=== PATIENT | female | born 1960 | race Caucasian/White ===

== ENCOUNTER 2024-01-06 08:12 | Outpatient (CLI) | payer MEDICAID, SELFPAY ==
--- OUTSIDE RECORDS SUMMARY | 2024-01-06 08:19 | XMS_ITS | Data Portability ---
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 Plan of Treatment Reminders Order Date Submit Date Provider Last Modified By Organization Details Last Modified Time Details Appointments ESTABLISH ED 10 2023 03:40P M Yon Angel MD Not available Not available Not available Lab urinalysi s, dipstick 2022 023 [email or web address] [facility], [address], [place], [address], 11/12/2022 13:58:55 Referral None recorded. Procedures None recorded. Surgeries None recorded. Imaging None recorded. Medication Orders None recorded. Patient TargetsNo targets recorded. Patient Instructions Encounter Date Encounter Id Patient Instructions Last Modified By Organization Details Last Modified Time 11/12/2022 [id number] will set up for CT urogram and call with plan for cysto [email or web address] Not available 11/12/2022 14:05:26 11/26/2022 [id number] will set up for 24 hour urine collection will call with result and follow up plan. [email or web address] Not available 11/26/2022 16:12:28 Reason for Referral None Reported. Results Created Date Observation Date Name Description Value Unit Range Abnormal Flag LastModifiedBy Organization Detail LastModifiedTime 11/13/19 23 11/12/2022 urina lysis , dipst ick pH-Status 5.5 Not Available [facility] [address], [place], [address], 11/10/2022 16:33:38 11/13/19 23 11/12/2022 urina lysis , dipst ick Blood-Status Large Not Available [facility] [address], [place], [address], 11/10/2022 16:33:38 12/14/19 23 12/16/2022 LITHO LINK 24HR URINE PANEL cystine, urine, qualitative Neg negati ve Not Available [facility] ([facility]) [address] [place], [address], 12/17/2022 00:06:26 12/14/19 23 12/16/2022 LITHO LINK 24HR URINE PANEL urine volume (preserved) 1940 mL/24 _HR 500-40 00 Not Available [facility] ([facility]) [address] [place], [address], 12/17/2022 00:06:26 12/14/19 23 12/16/2022 LITHO LINK 24HR URINE PANEL calcium oxalate saturation 13.63 6.00-1 0.00 above high normal Not Available [facility] ([facility]) [address] [place], [address], 12/17/2022 00:06:26 12/14/19 23 12/16/2022 LITHO LINK 24HR URINE PANEL calcium, urine 485 mg/24 _HR <200 above high normal Not Available [facility] ([facility]) [address] [place], [address], 12/17/2022 00:06:26 12/14/19 23 12/16/2022 LITHO LINK 24HR URINE PANEL oxalate, urine 56 mg/24 _HR 20-40 above high normal Not Available [facility] ([facility]) [address] [place], [address], 12/17/2022 00:06:26 12/14/19 23 12/16/2022 LITHO LINK 24HR URINE PANEL citrate, urine 1257 mg/24 _HR >550 Not Available [facility] ([facility]) [address] [place], [address], 12/17/2022 00:06:26 12/14/1912/16/2022 LITHO LINK 24HR URINE PANEL calcium phosphate saturation 3.68 0.50-2 .00 above high normal Not Available [facility] ([facility]) [address] [place], [address], 12/17/2022 00:06:26 12/14/1912/16/2022 LITHO LINK 24HR URINE PANEL pH, 24 HR, urine 6.371 5.800- 6.200 above high normal Not Available [facility] ([facility]) [address] [place], [address], 12/17/2022 00:06:26 12/14/19 23 12/16/2022 LITHO LINK 24HR URINE PANEL uric acid saturation 0.28 <1.00 Not Available [facility] ([facility]) [address] [place], [address], 12/17/2022 00:06:26 12/14/1912/16/2022 LITHO LINK 24HR URINE PANEL uric acid, urine 568 mg/24 _HR <750 Not Available [facility] ([facility]) [address] [place], [address], 12/17/2022 00:06:26 12/14/1912/16/2022 LITHO LINK 24HR URINE PANEL sodium, urine 179 mmol/ 24_HR 50-150 above high normal Not Available [facility] ([facility]) [address] [place], [address], 12/17/2022 00:06:26 12/14/19 23 12/16/2022 LITHO LINK 24HR URINE PANEL potassium, urine 76 mmol/ 24_HR 20-100 Not Available [facility] ([facility]) [address] [facility] [place], [address], 12/17/2022 00:06:26 12/14/1912/16/2022 LITHO LINK 24HR URINE PANEL magnesium, urine 225 mg/24 _HR 30-120 above high normal Not Available [facility] ([facility]) [address] [place], [address], 12/17/2022 00:06:26 12/14/1912/16/2022 LITHO LINK 24HR URINE PANEL phosphorus, urine 1093 mg/24 _HR 600-12 00 Not Available [facility] ([facility]) [address] [place], [address], 12/17/2022 00:06:26 12/14/1912/16/2022 LITHO LINK 24HR URINE PANEL ammonium, urine 27 mmol/ 24_HR 15-60 Not Available [facility] ([facility]) [address] [place], [address], 12/17/2022 00:06:26 12/14/1912/16/2022 LITHO LINK 24HR URINE PANEL chloride, urine 177 mmol/ 24_HR 70-250 Not Available [facility] ([facility]) [address] [place], [address], 12/17/2022 00:06:26 12/14/19 23 12/16/2022 LITHO LINK 24HR URINE PANEL sulfate, urine 34 mEq/2 4_HR 20-80 Not Available [facility] ([facility]) [address] [place], [address], 12/17/2022 00:06:26 12/14/19 23 12/16/2022 LITHO LINK 24HR URINE PANEL urea nitrogen, urine 12.08 g/24_ HR 6.00-1 4.00 Not Available [facility] ([facility]) [address] [place], [address], 12/17/2022 00:06:26 12/14/1912/16/2022 LITHO LINK 24HR URINE PANEL protein catabolic rate 1.2 g/kg/ 24_HR 0.8-1. 4 Not Available [facility] ([facility]) [address] [place], [address], 12/17/2022 00:06:26 12/14/1912/16/2022 LITHO LINK 24HR URINE PANEL creatinine, urine 1370 mg/24 _HR not applic . Not Available [facility] ([facility]) [address] [place], [address], 12/17/2022 00:06:26 12/14/1912/16/2022 LITHO LINK 24HR URINE PANEL creatinine/k g body weight 18.8 mg/24 _HR/k g 8.7-20 .3 Not Available [facility] ([facility]) [address] [place], [address], 12/17/2022 00:06:26 12/14/1912/16/2022 LITHO LINK 24HR URINE PANEL calcium/kg body weight 6.6 mg/24 _HR/k g <4.0 above high normal Not Available [facility] ([facility]) [address] [place], [address], 12/17/2022 00:06:26 12/14/1912/16/2022 LITHO LINK 24HR URINE PANEL calcium/crea tinine ratio 354 mg/g_ creat 51-262 above high normal Not Available [facility] ([facility]) [address] [place], [address], 12/17/2022 00:06:26 12/14/1912/16/2022 LITHO LINK 24HR URINE PANEL comment Note Not Available [facility] ([facility]) [address] [place], [address], 12/17/2022 00:06:26 12/14/19 23 12/16/2022 LITHO LINK 24HR URINE PANEL pdf . Not Available [facility] ([facility]) [address] [place], [address], 12/17/2022 00:06:26 05/27/20 23 06/01/2023 LITHO LINK 24HR URINE PANEL cystine, urine, qualitative COMMEN T Not Available [facility] ([facility]) [address] [place], [address], 06/01/2023 04:07:48 05/27/2006/01/2023 LITHO LINK 24HR URINE PANEL urine volume (preserved) 1620 mL/24 _HR 500-40 00 Not Available [facility] ([facility]) [address] [place], [address], 06/01/2023 04:07:48 05/27/2006/01/2023 LITHO LINK 24HR URINE PANEL calcium oxalate saturation 7.27 6.00-1 0.00 Not Available [facility] ([facility]) [address] [place], [address], 06/01/2023 04:07:48 05/27/20 23 06/01/2023 LITHO LINK 24HR URINE PANEL calcium, urine 195 mg/24 _HR <200 Not Available [facility] ([facility]) [address] [place], [address], 06/01/2023 04:07:48 05/27/20 23 06/01/2023 LITHO LINK 24HR URINE PANEL oxalate, urine 43 mg/24 _HR 20-40 above high normal Not Available [facility] ([facility]) [address] [place], [address], 06/01/2023 04:07:48 05/27/20 23 06/01/2023 LITHO LINK 24HR URINE PANEL citrate, urine 1126 mg/24 _HR >550 Not Available [facility] ([facility]) [address] [facility] [place], [address], 06/01/2023 04:07:48 05/27/2006/01/2023 LITHO LINK 24HR URINE PANEL calcium phosphate saturation 2.21 0.50-2 .00 above high normal Not Available [facility] ([facility]) [address] [facility] [place], [address], 06/01/2023 04:07:48 05/27/2006/01/2023 LITHO LINK 24HR URINE PANEL pH, 24 HR, urine 6.341 5.800- 6.200 above high normal Not Available [facility] ([facility]) [address] [facility] [place], [address], 06/01/2023 04:07:48 05/27/2006/01/2023 LITHO LINK 24HR URINE PANEL uric acid saturation 0.46 <1.00 Not Available [facility] ([facility]) [address] [facility] [place], [address], 06/01/2023 04:07:48 05/27/2006/01/2023 LITHO LINK 24HR URINE PANEL uric acid, urine 734 mg/24 _HR <750 Not Available [facility] ([facility]) [address] [place], [address], 06/01/2023 04:07:48 05/27/2006/01/2023 LITHO LINK 24HR URINE PANEL sodium, urine 145 mmol/ 24_HR 50-150 Not Available [facility] ([facility]) [address] [place], [address], 06/01/2023 04:07:48 05/27/2006/01/2023 LITHO LINK 24HR URINE PANEL potassium, urine 69 mmol/ 24_HR 20-100 Not Available [facility] ([facility]) [address] [place], [address], 06/01/2023 04:07:48 05/27/20 23 06/01/2023 LITHO LINK 24HR URINE PANEL magnesium, urine 166 mg/24 _HR 30-120 above high normal Not Available [facility] ([facility]) [address] [facility] [place], [address], 06/01/2023 04:07:48 05/27/20 23 06/01/2023 LITHO LINK 24HR URINE PANEL phosphorus, urine 1297 mg/24 _HR 600-12 00 above high normal Not Available [facility] ([facility]) [address] [place], [address], 06/01/2023 04:07:48 05/27/2006/01/2023 LITHO LINK 24HR URINE PANEL ammonium, urine 29 mmol/ 24_HR 15-60 Not Available [facility] ([facility]) [address] [place], [address], 06/01/2023 04:07:48 05/27/20 23 06/01/2023 LITHO LINK 24HR URINE PANEL chloride, urine 122 mmol/ 24_HR 70-250 Not Available [facility] ([facility]) [address] [place], [address], 06/01/2023 04:07:48 05/27/20 23 06/01/2023 LITHO LINK 24HR URINE PANEL sulfate, urine 40 mEq/2 4_HR 20-80 Not Available [facility] ([facility]) [address] [place], [address], 06/01/2023 04:07:48 05/27/2006/01/2023 LITHO LINK 24HR URINE PANEL urea nitrogen, urine 12.16 g/24_ HR 6.00-1 4.00 Not Available [facility] ([facility]) [address] [place], [address], 06/01/2023 04:07:48 05/27/20 23 06/01/2023 LITHO LINK 24HR URINE PANEL protein catabolic rate 1.2 g/kg/ 24_HR 0.8-1. 4 Not Available [facility] ([facility]) [address] [facility] [place], [address], 06/01/2023 04:07:48 05/27/20 23 06/01/2023 LITHO LINK 24HR URINE PANEL creatinine, urine 1404 mg/24 _HR not applic . Not Available [facility] ([facility]) [address] [facility] [place], [address], 06/01/2023 04:07:48 05/27/2006/01/2023 LITHO LINK 24HR URINE PANEL creatinine/k g body weight 19.4 mg/24 _HR/k g 8.7-20 .3 Not Available [facility] ([facility]) [address] [facility] [place], [address], 06/01/2023 04:07:48 05/27/20 23 06/01/2023 LITHO LINK 24HR URINE PANEL calcium/kg body weight 2.7 mg/24 _HR/k g <4.0 Not Available [facility] ([facility]) [address] [facility] [place], [address], 06/01/2023 04:07:48 05/27/2006/01/2023 LITHO LINK 24HR URINE PANEL calcium/crea tinine ratio 139 mg/g_ creat 51-262 Not Available [facility] ([facility]) [address] [facility] [place], [address], 06/01/2023 04:07:48 05/27/2006/01/2023 LITHO LINK 24HR URINE PANEL comment NOTE Not Available [facility] ([facility]) [address] [facility] [place], [address], 06/01/2023 04:07:48 11/27/1911/24/2022 CT, urogr am No observ ation record ed. [email or web address] [facility] [address], [place], [address], 11/26/2022 12:28:21 11/27/19 23 11/26/2022 XR, kidne y + urete r + bladd er EXAM: XR, KIDNEY + URETER + BLADDE R LOCATI ON: [facility] DATE/T SUNITA: 11/27/19 23 2:45 PM CDT INDICA TION: Nephro lithia sis. COMPAR BOWEN: CT of the abdome n and pelvis perfor med 023. IMPRES GATO: There is a large amount of gas and stool throug hout the colon, sugges ting consti pation . The kidney s are signif icantl y obscur ed by overly ing bowel gas. A 0.5 cm stone is noted in the upper pole of the right kidney . Severa l small stones are visibl e in the left kidney , with the larges t measur ed at 0.4 cm. No convin cing ureter al calcul i. This report was electr onical ly interp reted by: Bella arechiga MD on 2022 at 16:59 [facility] [address], [place], [address], 11/27/2022 10:33:36 Result Notes None recorded. Procedures Surgical History Date Name Laterality Status Provider Name and Address Organization Details Recorded Time section completed Yon Angel MD [address] [place] [address],[address], [address], [facility] 11/12/2022 13:57:19 fixation of pendulous breast completed Yon Angel MD [address] [place] [address],[address], [address], [facility] 11/12/2022 13:57:35 abdominoplasty completed Yon Angel MD [address] [place] [address],[address], [address], [facility] 11/12/2022 13:57:43 Imaging Results Imaging Date Name Status LastModified by Organiz ation Details LastModified Time 11/24/2022 CT, urogram completed [email or web address] [facility] [address], [place], [address], 11/26/2022 12:28:21 11/26/2022 XR, kidney + ureter + bladder completed [email or web address] [facility] [address], [place], [address], 11/27/2022 10:33:36 Procedure Notes None recorded. Medical Equipment None Reported. Allergies No known drug allergies Medications Name Sig Start Date Stop Date Status Note LastModified by Organization Details LastModified Time hydrochlorothiaz elan 25 mg tablet TAKE 1 TABLET BY MOUTH EVERY DAY 2023 active Not Available Not Available Not Avai lable naproxen 500 mg tablet active Not Available Not Available Not Available Ciprodex 0.3 %-0.1 % ear drops,suspension PLACE 4 DROPS INTO LEFT EAR TWO TIMES DAILY FOR 7 DAYS. active Not Available Not Available No t Available Vitals Date Recorded Body height Body mass index (BMI) Body weight Provider Name and Address Organization Details Last Updated DateTime 11/12/2022 170.18 cm 25.2 kg/m2 18368.37 g Yon Angel MD [address] [place] [address], [address], [facility] 11/12/2022 13:56:22 Date Recorded Body height Body mass index (BMI) Body weight Provider Name and Address Organization Details Last Updated DateTime 11/26/2022 170.18 cm 25.2 kg/m2 16327.37 g Windy Huff [email or web address] 11/26/2022 15:11:24 Social History Question Answer Notes LastModified by Organizat ion Details LastModified Time Tobacco Smoking Status Never Smoker Yon Angel MD [address] [place] [address], [address], [facility] 11/12/2022 13:57:06 What Is Your Level Of Alcohol Consumption? None [email or web address] Information not available 11/12/2022 What Is Your Level Of Caffeine Consumption? Occasional [email or web address] Information not available 11/12/2022 What Was The Date Of Your Most Recent Tobacco Screening? 11/26/2022 [email or web address] Information not available 11/26/2022 Do You Use Any Illicit Or Recreational Drugs? No [email or web address] Information not available 11/26/2022 Has Tobacco Cessation Counseling Been Provided? No [email or web address] Information not available 11/26/2022 Sex: Unknown Functional Status None recorded. Mental Status None recorded. Family History Relationship Description Onset Age of this Age Resolved Age Notes Mother Family history of ca ncer of colon Medical History Condition Response Other N High Blood Pressure N Kidney Stones Y Lung Disease N Depression N GERD/Acid Reflux N Sexually Transmitted Infection N Diabetes N Bleeding Disorder N Cancer N High Cholesterol N Heart Disease N Gynecological HistoryNo gynecological history recorded. Obstetrics History GPAL:G 2 P 0 0 0 0 Past Encounters Encounter ID Performer Location Encounter Start Date Encounter Closed Date Diagnosis/Indication Diagnosis SNOMED-CT Code [id number] Yon Angel MD [facility] [address] [place] [address] 11/12/2022 13:38:23 11/20/2022 11:56:57 Blood in urine [id number] Yon Angel MD [facility] [address] [place] [address] 11/26/2022 14:47:00 12/03/2022 17:23:36 Kidney stone [id number] Health Concerns Section Related Observation LastModified by Organization Detai ls LastModified Time None Recorded Concern Status LastModified by Organization Details LastModified Time None Recorded Advance Directives Directive None Recorded Payers Encounter Date Sequence Insurance Name Policy Number Policy Griffin Covered Member ID Griffin Member ID Guarantor Name 11/12/2022 1 [facility] [id number] 1 Kathya Ospina [id number] Kathya Ospina 11/26/2022 1 [facility] [id number] Kathya Ospina [id number] Kathya Ospina Notes Date Note Type Note Provider Name and Address Organization Details Recorded Time 11/12/2022 text/html HPI Notes: seeing for microhematuria. has stone hx seen on CT 3-4 years ago.. had a bout of freq/urge and then went away. UA lg RBC today. family hx neg for stone. never smoked. Yon Angel MD [address] [facility],[address], [place], [address], [facility] 11/12/2022 14:17:12 11/26/2022 text/html HPI Notes: seeing for follow up stone seen on CT bilateral stones, up to 6mm on right and 3mm on left side. never has passed a stone, KUB today poor quality due to bowel content overlying kidneys.think I can see 1 or 2 stones on the right. Yon Angel MD [address], [place], [address], [facility] 11/26/2022 16:12:40 OBGyn Episode No OBEpisode recorded.
--- OUTSIDE RECORDS SUMMARY | 2024-01-06 08:19 | XMS_ITS | Clinical Summary ---
Author Organization [employer] Address [place], [place] [address] Care Team Providers Care Spring Crater Name Role Phone Urvashi Abrams Primary Care Provider Allergies No known active allergies Medications Medication Sig Dispensed Refills Start Date End Date Status hydroCHLOROthiazide (HCTZ) 25 mg tablet Take 1 tablet every day by oral route for 30 days. 01/03/2023 Active naproxen (NAPROSYN) 500 mg tabletIndications:T endinopathy of left gluteus medius,Hip pain, left Take 1 Tablet (500 mg) by mouth two times daily with meals. 60 Tablet 01/13/2023 Active cyclobenzaprine (FLEXERIL) 10 mg tabletIndications:C hronic tension-type headache, not intractable Take 1 Tablet (10 mg) by mouth at bedtime if needed (muscle spasm and headaches). 30 Tablet 3 09/02/2023 Active Wombp-9-IAB-EPA-Fis h Oil (Fish OiL) 1,200 (144-216) mg capsule Take by mouth. Active calcium/magnesium/z inc (Calcium-Magnesuium -Zinc) 333-133-5 mg tablet Take 1 Tablet by mouth. Active polyethylene glycol-electrolyte (GOLYTELY) 236-22.74-6.74 -5.86 gram suspensionIndicatio ns:Encounter for screening colonoscopy Drink 6 liters (one & one-half bottles) the day before colonoscopy and 2 liters (remaining one-half bottle) 6 hours prior to colonoscopy appointment. 8000 mL 09/13/2023 Active hydroCHLOROthiazide 25 mg tablet Take 1 Tablet by mouth once daily. 11/24/2023 Active Active Problems Problem Noted Date Diagnosed Date Chronic tension-type headache, not intractable 0 02/25/2019 Osteoarthritis of cervical spine with myelopathy 02/25/2019 Hyperopia of both eyes with astigmatism and pres byopia 06/05/2018 Personal history of colonic polyps 12/24/2014 Overview: 3 polyps in 2012, hyperplastic, needs follow up in 5 yrs Colonoscopy 03/2018 hyperplastic polyp, repeat in 5 years Colonoscopy 02/2021 TA, repeat in 7 years, peg4-8L, colowrap, propofol Resolved Problems Problem Noted Date Diagnosed Date Resolved Date OBESITY 11/16/1999 09/08/2009 WARTS, VIRAL NOS 11/16/1999 09/08/2009 Lipoma of unspecified site 09/23/1999 0 09/08/2009 DISORDER, DEPRESSIVE NEC 09/23/1999 DISORDER, TMJ NOS 09/08/2009 Encounters Date Type Department Care Team Description 12/27/2023 10:00 AM CDT [place] [facility] [address] [place] [address] Urvashi Abrams PA Pre-Op Exam 12/27/2023 Travel from Last 3 Months Immunizations Name Administration Dates Next Due Td (Age >=7 Years) 11/02/2005,10/21/2005, 999 Tdap 01/13/2016 Family History Medical History Relation Name Comments Other Brother 1 Miguel They never matt lly determined how he . Melanoma Brother 2 Massimo Rasheed's twin Skin cancer Brother 2 Massimo Another kind of skin cancer as well No Known Problems Daughter Precious Cancer Father Brain tumor dec eased age 70 Other Father brain tumor com plications Cancer-colon Mother Dx age 77 Osteoporosis Mother Cancer-colon Paternal Grandfather Diabetes Sister 1 Melanie Good Health Sister 2 Brittni No Known Problems Son Deacon Cancer-breast No Family History Relation Name Status Comments Brother 1 Miguel Brother 2 Massimo Alive Daughter Precious Alive Father Maternal Grandfather Maternal Grandmother Mother Paternal Grandfather Paternal Grandmother Sister 1 Melanie Alive Sister 2 Brittni Alive Son Deacon Alive Social History Tobacco Use Types Packs/Day Years Used Date Smoking Tobacco: Never Smokeless Tobacco: Never Tobacco Cessation:Counseling Given: No Alcohol Use Standard Drinks/Week Comments No 0 (1 standard drink = 0.6 oz pur e alcohol) PHQ-2 Answer Date Recorded PHQ-2 TOTAL SCORE 0 09/02/2023 Social Connections Answer Date Recorded Frequency of Communication with Friends and Fami ly Not on file 09/26/2023 Financial Resource Strain Answer Date R ecorded Difficulty of Paying Living Expenses 3 09/23/2022 Difficulty of Paying Living Expenses Not on file 09/23/2022 Food Insecurity Answer Date Recorded Worried About Running Out of Food in the Last Ye ar 1 09/23/2022 Transportation Needs Answer Date Record ed Lack of Transportation (Medical) 1 09/23/2022 Housing Stability Answer Date Recorded Unable to Pay for Housing in the Last Year 1 09/23/2022 Sex and Gender Information Value Date Recorded Sex Assigned at Not on file Gender Identity Not on file Sexual Orientation Not on file Obstetrics History Para Term AB IAB SAB Ectopic Multiple Livin g Live Births 2 2 2 2 2 Date Outcome GA Total Labor Labor/2nd/3rd Weight Sex Type Anes PTL Rosy A1 A5 Name Clin 01/28 Term F C-Sec tion Living Precious 12/10 Term M Living Deacon Last Filed Vital Signs Vital Sign Reading Time Taken Comments Blood Pressure 98/60 12/27/2023 9:54 AM CDT Pulse 58 12/27/2023 9:54 AM CDT Temperature 36.6 ??C (97.8 ??F) 02/19/2021 7:38 AM CD T Respiratory Rate 18 03/22/2023 9:37 AM CDT Oxygen Saturation 97% 12/27/2023 9:54 AM CDT Inhaled Oxygen Concentration - - Weight 74.4 kg (164 lb 1.6 oz) 12/27/2023 9:54 A M CDT Height 168.5 cm (5' 6.34) 09/02/2023 12:[address] Body Mass Index 26.22 09/02/2023 12:56 PM YARDER Plan of Treatment Upcoming Encounters Date Type Department Care Team (Late st Contact Info) Description 01/06/2024 8:30 AM CDT Office Visit [facility] [address] [place] [address] Simone Zuniga MD [address] [place] [address] Arrived 04/09/2024 2:30 PM CDT Ancillary Procedure [facility] [address] [place] [address] 04/26/2024 10:50 AM CDT [place] [facility] [address] [place] [address] [place] [address] [place] [address] Health Maintenance Due Date Last Done Comments Influenza for age 50-64 02/26/2024 Mammogram for age 45-75 04/08/2024 04/08/20 23, 04/07/2022, 03/23/2021, Additional history exists Pap test for age 21-65 04/26/2024 9, 04/26/2019, 01/13/2016, Additional history exists BMI (ht and wt on same day) for age 18+ 09/01/2024 09/02/2023, 01/13/2023, 08/31/2022, Additional history exists Depression screening for age 12+ 09/04/2024 09/05/2023, 09/02/2023, 08/31/2022, Additional history exists COVID-19 vaccine series (2022-24 season) 2025 Postponed from 02/25/2023 (Patient discretion) Zoster (shingles) series for age 50+ (1 of 2) 09/06/2025 Postponed from 2012 (Patient discretion) Tetanus booster 01/12/2026 01/13/2016, 02/2006, 10/21/2005, Additional history exists Colonoscopy through age 75 02/24/202801/05, 02/23/2021, 02/23/2021, Additional history exists Lipids for age 45-75 09/01/2028 09/02/2023, 08/31/2022, 04/26/2019, Additional history exists Tdap Completed 01/13/2016, /0 01/2013 [facility] Hepatitis C screening for age 18-79 Completed 04/26/2019 HIV for age 15-65 Completed 08/31/2022 Pneumococcal series for age 6-64 Aged Out No longer eligible based on patient's age to complete this topic Procedures Procedure Name Priority Date/Time Associated Diagnosis Comments COLONOSCOPY DIAGNOSTIC Routine 01/06/2024 8:06 AM CDT Blood in stool Family history of colon cancer POTASSIUM Routine 12/27/2023 10:33 AM CDT Pre-op examination LIPID PANEL W REFLEX MEASURED LDL Routine 09/02/2023 12:53 PM YARDER Screening for hyperlipidemia XR MAMMO ROBBIE BILAT SCREEN IMPLANT Routine 04/08/2023 10:44 AM CDT Screening mammogram, encounter for LC HIV-1/O/2, 4TH GENERATION Routine 08/31/2022 11:45 AM YARDER Encounter for screening for HIV ANTI HCV Routine 04/26/2019 10:48 AM CDT Need for hepatitis C screening test TRANSPORTATION BROKER THIN PREP PAP SCREEN IMAGED Routine 04/26/2019 10:30 AM CDT Pap smear for cervical cancer screening from Last 3 Months or Most Recently Relevant to Health Maintenance Results * POTASSIUM (12/27/2023 10:33 AM CDT) POTASSIUM 3.8 3.5 - 5.1 mmol/L 12/27/2023 6:42 PM CDT [facility] Systems LABORATORY-[facility] Blood BLOOD SPECIMEN / Unknown Venipuncture / Unknown 12/27/2023 10:33 AM CDT 12/27/2023 10:33 AM CDT Urvashi DIALLO CHEMISTRY [facility] If You Can LABORATORY-CENTRAL LABORATORY [address] [place] [address], * (ABNORMAL) LIPID PANEL W REFLEX MEASURED LDL (09/02/2023 12:53 PM YARDER) CHOLESTEROL,TOTAL 292(H) 100 - 199 mg/dL 09/02/2023 9:24 PM YARDER [facility] TRAL LABORATORY Comment: Cholesterol, Total Reference Ranges Desirable <200 mg/dL Borderline 200-239 mg/dL High >=240 mg/dL TRIGLYCERIDES 73 <150 mg/dL 09/02/2023 9:24 PM YARDER [facility] TRAL LABORATORY HDL CHOLESTEROL 100 >40 mg/dL 9:24 PM YARDER [facility] TRAL LABORATORY NON-HDL CHOLESTEROL 192(H) <145 mg/dl 09/02/2023 9:24 PM YARDER [facility] TRA LABORATORY CHOL/HDL RATIO 2.92 <4.50 09/02/2023 9:24 PM YARDER [facility] TRAL LABORATORY LDL CHOLESTEROL 177(H) <=130 mg/dL 09/02/2023 9:24 PM YARDER [facility] TRAL LABORATORY VLDL CHOLESTEROL 15 <=30 mg/dL 09/02/2023 9:24 PM YARDER [facility] TRA LABORATORY PROVIDER ORDERED STATUS RANDOM 09/02/2023 9:24 PM YARDER [facility] Blood BLOOD SPECIMEN / Unknown Venipuncture / Unknown 09/02/2023 12:53 PM YARDER 09/02/2023 12:53 PM YARDER Urvashi DIALLO CHEMISTRY [facility]ORAT[facility] [address] [place] [place] [address], * XR MAMMO ROBBIE BILAT SCREEN IMPLANT (04/08/2023 10:44 AM CDT) Anatomical Region Laterality Modality BREASTS, Breast Left, Breast Right Bilateral Mammography Impressions 04/11/2023 12:11 PM CDT ??There is no radiographic evidence for malignancy. ??Recommend annual mammograms. MAMMOGRAM ASSESSMENT: ??ACR 2 Benign PATIENTS: You will also receive a letter with your examination results in an easy to read format. ??If you have questions about your results, please contact your referring provider. Narrative 04/11/2023 12:11 PM CDT For Patients: As a result of the Century Cures Act, medical imaging exams and procedure reports are released immediately into your electronic medical record. You may view this report before your referring provider. If you have questions, please contact your health care provider. XR MAMMO ROBBIE BILAT SCREEN IMPLANT [[id number]] CLINICAL HISTORY: ??This is an asymptomatic 62 y.o. patient. INDICATION FOR EXAM: Mammogram Screening. TECHNIQUE: CC & MLO views were obtained. Implant displacement views were obtained. This study was evaluated with the assistance of Computer-Aided Detection. Breast Tomosynthesis was used in interpretation. COMPARISON FILMS: Yes 04/07/22 [facility] FINDINGS: ??The breasts have scattered areas of fibroglandular density. ??No suspicious masses or microcalcifications. ??There are breast implant(s) present.. Deepti Zapata DO MAMMO * LC HIV-1/O/2, 4TH GENERATION (08/31/2022 11:45 AM YARDER) HIV Scr 4th Gen Non Reactive Non Reactive 09/02/2022 1:09 PM YARDER [facility] ([facility] Comment: HIV Negative HIV-1/HIV-2 antibodies and HIV-1 p24 antigen were NOT detected. There is no laboratory evidence of HIV infection. Blood BLOOD SPECIMEN / Unknown Venipuncture / Unknown 08/31/2022 11:45 AM YARDER 08/31/2022 11:45 AM YARDER Narrative [facility] - 09/02/2022 1:09 PM YARDER Performed at: ??[address] ??[id number] Meat Soaker: Jean Paul Henderson MD, Phone: ??[phone] Alesia Gregorio MD LABORATORY [facility] ([facility]) [address] [place] [address], * COLONOSCOPY DIAGNOSTIC (02/23/2021 12:00 AM CDT) Deepti Zapata DO GI PROCEDURE ORD * ANTI HCV (04/26/2019 10:48 AM CDT) HEPATITIS C ANTIBODY Non-React maria del carmen Non-React maria del carmen 04/26/2019 5:28 PM CDT [facility] TRAL LABORATORY Comment:Antibodies to HCV no t detected; does not exclude the possibility of exposure to HCV. Blood BLOOD SPECIMEN / Unknown Venipuncture / Unknown 04/26/2019 10:48 AM CDT 04/26/2019 10:48 AM CDT Deepti Zapata DO SEND OUTS [facility]-CEN[facility]AL LABORATORY [address] [place] [address], * TRANSPORTATION BROKER THIN PREP PAP SCREEN IMAGED (04/26/2019 10:30 AM CDT) Pathologist [facility] Case Report Gynecologic Cytology Report ? Case: [id number] ? Authorizing Provider: ??Deepti Zapata, ? Collected: ? 04/26/2019 1030 ? Ordering Location: ? [facility] ?? Received: ?04/26/2019 1123 ? Clinic ? First Screen: ?Silvano Rasheed ? Specimen: ?TRANSPORTATION BROKER ThinPrep Vial Screening, Cervical ? 05/09/2019 12:31 PM [facility] INTERPRETATION/ RESULT NEGATIVE FOR INTRAEPITHELIAL LESION OR MALIGNANCY (NIL) (none) 05/09/2019 12:31 PM [facility] ENTRAL LABORATORY IMEN ADEQUACY Satisfactory for evaluation Endocervical component present 05/09/2019 12:31 PM [facility] If You Can LABORATORY ENTRAL LABORATORY HPV REQUEST HPV and PAP 05/09/2019 12:31 PM [facility] If You Can LABORATORY ENTRAL LABORATORY Date of LMP 201305/09/2019 12:31 PM [facility] LABORATORY-C ENTRAL LABORATORY Last Pap Date 01/13/16 05/09/2019 12:31 PM [facility] LABORATORY- ENTRAL LABORATORY Last Pap Result NIL 9 12:31 PM [facility] LABORATORY ENTRAL LABORATORY Abnormal Pap or [place] Bx in last 5 years No 05/09/2019 12:31 PM [facility] LABORATORY- ENTRAL LABORATORY Menstrual Status Postmenopausal 05/09/2019 12:31 PM [facility] LABORATORY ENTRAL LABORATORY [place] Bx Done Today No 05/09/2019 12:31 PM [facility] ENTRAL LABORATORY Additional Information None given 05/09/2019 12:31 PM [facility] ENTRAL LABORATORY Automated Review Successful 05/09/2019 12:31 PM [facility] ENTRAL LABORATORY Comment:Specimen processed s uccessfully by automated ward helper device, ThinPrep Imaging System, [employer] ANCILLARY TESTING TRANSPORTATION BROKER HPV Ordered, Please see separate report 05/09/2019 12:31 PM YARDER [facility] LABORATORY-C ENTRAL LABORATORY Note The pap test is a screening technique, not a diagnostic procedure. ??It is used primarily to screen for squamous cancers and precursor lesions. ??Published studies have shown that it is subject to both false negative and false positive results. ??The pap test should not be used as the sole means to diagnose or exclude pre-malignant and malignant lesions. Cytology is screened and interpreted at [facility] - [address], [place] [address] and [facility] - [address]; [place] [address] and [facility] - [address]; [place] [address] and [facility] [address]; [place] [address] 05/09/2019 12:31 PM YARDER [facility] LAB[facility] Other (Cervical) Non-Blood / Unknown 04/26/2019 10:30 AM CDT 04/26/2019 11:23 AM CDT Deepti Zapata DO PATHOLOGY/CYTOLOGY [facility] [address] [place] [address], [place] from Last 3 Months or Most Recently Relevant to Health Maintenance Care Teams Spring Crater Relationship Specialty [place] [address] [address] Sánchez [place], [place] [phone] PCP - General Physician Government Employee 09/02/23
--- NOTE | 2024-01-06 10:12 | W.ANESCHARGE ---
Anesthesia Charges Start Date/Time Anesthesia Start Date: 01/06/24 Anesthesia Start Time: 09:50 Stop Date/Time Anesthesia Stop Date: 01/06/24 Anesthesia Stop Time: 10:10
--- NOTE | 2024-01-06 10:21 | W.ANESCHARGE ---
Anesthesia Charges Start Date/Time Anesthesia Start Date: 01/06/24 Anesthesia Start Time: 09:50 Stop Date/Time Anesthesia Stop Date: 01/06/24 Anesthesia Stop Time: 10:10
== END 2024-01-06 08:13 | disposition home or self-care (01) ==
LOC: OP CLINIC 08:13
PROVIDERS: PCP Physician Assistant; Visit Provider Internal Medicine Gastroenterology
DX: K92.1 Melena (principal); K64.8 Other hemorrhoids; Z86.010 Personal history of colon polyps
CPT/HCPCS: 00811; 00812; 45378; J2704